=== PATIENT | female | born 1935 | race Caucasian/White ===

== ENCOUNTER 2016-08-20 10:29 | Inpatient (IN) | payer MEDICARE, BC ==
[~2016-08-20 10:29] MED LIST: ALBUTEROL0.63 MG/1 INH; ALBUTEROL0.83 MG/ML INH; ALDACTONE25 M1 PO; ALDACTONE25 MG PO; AMIODARONE HCL400 MG PO; ASPIR 8181 MG PO; BELVIQ10 M1 PO; BENADRYL25 MG PO; BL MAXEPA CAPSU1 CAP PO; BYSTOLIC10 M1 PO; CALCIUM CARBON600 MG PO; CALCIUM CITRAT1 EAC6 PO; CEPHALEXIN; CHOLESTRAMINE; CLONAZEPAM1 M1 PO; CLONAZEPAM1 M2 PO; COLACE1 EAC1 RC; CRESTOR10 MG PO; CRESTOR20 MG PO; DEMADEX20 M1 PO; DILAUDID2 MG PO; EXELON1 PATCH .1 TD; FEROSUL325 MG PO; FERROUS GLUCON324 M1 PO; FLEXERIL5 MG PO; FLOVENT HFA12 GM IH; FOLIC ACID1 MG PO; FOSAMAX70 MG PO; GAS X PO; GAS-X80 MG PO; HYDROMORPHONE HC2 MG PO; KLOR-CON 1010 MEQ PO; LASIX20 MG PO; LATANOPROST2.5 M1 OP; LATANOPROST2.5 ML OP; LEVAQUIN750 M1 PO; LEVOTHYROXINE50 MCG PO; LEXAPRO20 M1 PO; LEXAPRO20 MG PO; MACROBID100 MG/CA2 PO; MACRODANTIN100 MG PO; MAGNESIUM400 MG PO; MEPROBAMATE400 MG PO; METHOTREXA25 MG/1 M3 IJ; MIRALAX17 G2 PO; MUCINEX600 M1 PO; NAMENDA XR14 M1 PO; NAMENDA10 MG PO; NITROGLYCERIN0.4 MG SL; NORCO 5/325 TAB1 TAB PO; NORVASC5 M2 PO; NORVASC5 MG PO; PANTOPRAZOLE SO40 MG PO; PERCOCET 5/3251 TAB PO; PRADAXA150 MG PO; PRADAXA75 M1 PO; PREDNISONE10 MG PO; PREDNISONE20 M1 PO; PREDNISONE20 MG PO; PROAIR HFA8.5 GM INH; REMICADE100 MG IV; REMICADE100 MG/VIA IV; ROBITUSSIN COU118 M8 PO; SYNTHROID100 MC1 PO; TAMIFLU75 MG/CAP PO; TIMOPTIC10 ML EACH EYE; TOPROL XL50 MG PO; TYLENOL ARTHRI650 MG PO; ULTRAM50 MG PO; VITAMIN D1000 UNIT PO; VITAMIN D32000 UNI3 PO; VITAMIN D32000 UNIT PO; VITAMIN E PO; XALATAN2.5 ML OP; XANAX0.5 MG PO; ZANAFLEX4 M2 PO; ZITHROMAX500 M2 PO; ZOLPIDEM TARTRA10 M1 PO; [UNRECOGNIZED DRUG - OTHER] PO; [UNRECOGNIZED DRUG - SUPPLY]
[2016-08-20] MEDS ORDERED: XANAX0.5 M1 PO (10:45)
[2016-08-20] MEDS ORDERED: ALBUTEROL2.5 MG/3 M INH ×2 (10:45)
[2016-08-20] MEDS ORDERED: BYSTOLIC5 M1 PO (10:46)
[2016-08-20] MEDS ORDERED: ASPIRIN EC81 MG PO (10:46)
[2016-08-20] MEDS ORDERED: ALPRAZOLAM0.5 M3 PO (10:46)
[2016-08-20] MEDS ORDERED: EXELON1 EAC1 TD (10:47)
[2016-08-20] MEDS ORDERED: KLONOPIN1 M1 PO (10:47)
[2016-08-20] MEDS ORDERED: LEXAPRO20 M2 PO (10:47)
[2016-08-20] MEDS ORDERED: CALCIUM CITRAT1 EA18 PO (10:47)
[2016-08-20] MEDS ORDERED: FERROUS GLUCON324 M1 PO (10:48)
[2016-08-20] MEDS ORDERED: FLOVENT HFA1 PUFF INH (10:48)
[2016-08-20] MEDS ORDERED: FOLIC ACID1 M1 PO (10:48)
[2016-08-20] MEDS ORDERED: XALATAN2.5 M1 OP (10:49)
[2016-08-20] MEDS ORDERED: MAGNESIUM OXID400 M1 PO (10:49)
[2016-08-20] MEDS ORDERED: SYNTHROID100 MC1 PO (10:49)
[2016-08-20] MEDS ORDERED: NAMENDA XR21 M1 PO (10:49)
[2016-08-20] MEDS ORDERED: MUCINEX600 M1 PO (10:49)
[2016-08-20] MEDS ORDERED: PROTONIX40 M2 PO (10:50)
[2016-08-20] MEDS ORDERED: DELTASONE20 MG PO ×2 (10:50→10:53)
[2016-08-20] MEDS ORDERED: MACROBID 100 M100 M1 PO (10:50)
[2016-08-20] MEDS ORDERED: PRADAXA75 M1 PO (10:50)
[2016-08-20] MEDS ORDERED: PREDNISONE20 M1 PO (10:51)
[2016-08-20] MEDS ORDERED: ROSUVASTATIN CA20 MG PO (10:53)
[2016-08-20] MEDS ORDERED: TYLENOL EXTRA500 M1 PO (10:54)
[2016-08-20] MEDS ORDERED: DEMADEX10 M1 PO (10:54)
[2016-08-20] MEDS ORDERED: TIMOPTIC10 ML OP (10:54)
[2016-08-20] MEDS ORDERED: VITAMIN D32000 UNI3 PO (10:54)
[2016-08-20] MEDS ORDERED: ANTI-DIARRHEAL2 M3 PO (10:56)
[2016-08-20] MEDS ORDERED: HYDROCODON-ACE1 EA17 PO (10:56)
[2016-08-20] MEDS ORDERED: [UNRECOGNIZED DRUG - OTHER] PO (10:57)
[2016-08-20] MEDS ORDERED: ZOFRAN4 M2 PO (10:57)
[2016-08-20] MEDS ORDERED: NITROSTAT0.4 MG/TAB SL (10:57)
[2016-08-20] MEDS ORDERED: ROBAFEN100 MG/52 PO (10:58)
[2016-08-20] MEDS ORDERED: PROAIR HFA8.5 GM INH (10:58)
[2016-08-20 11:06] LABS: BASO % 0.1 % (0-2); EOS % 0.1 % (0-7); HCT-HEMATOCRIT 39.4 % (34.0-49.0); HGB-HEMOGLOBIN 12.8 gm/dl (12.0-15.5); IMMATURE GRANULOCYTES ABSOLUTE 0.07 tho/cmm (0-0.03); IMMATURE GRANULOCYTES PERCENT 0.4 % (0-0.3); LYMPH % 6.7 % (20-45); LYMPH ABSOLUTE COUNT 1.2 tho/cmm (0.8-4.5); MCH (MEAN CORPUSCULAR HGB) 29.4 pg (28.0-32.0); MCHC MEAN CORPUSCULAR HGB CONC 32.5 % (32.0-36.0); MCV (MEAN CELL VOLUME) 90.4 fl (82.0-96.0); MEAN PLATELET VOLUME 11.5 cmc (9.4-12.4); MONO % 12.2 % (0-12); MONOCYTE ABSOLUTE COUNT 2.2 tho/cmm (0.0-1.2); NEUTROPHIL ABSOLUTE COUNT 14.7 tho/cmm (1.6-8.0); NEUTROPHIL-AUTOMATED 14.7 tho/cmm (1.6-8.0); NEUTROPHILS % 80.5 % (40-80); PLATELET COUNT 265 tho/cmm (150-450); RED BLOOD COUNT 4.36 mil/cmm (4.00-5.20); RED CELL DISTRIBUTION WIDTH 14.7 % (12.4-16.4); WHITE BLOOD COUNT 18.3 tho/cmm (4.0-10.0)
[2016-08-20 11:37] LABS: ALB/GLOB RATIO 0.7 (0.8-2.0); ALBUMIN 3.5 g/dl (3.5-5.0); ALKALINE PHOSPHATASE 121 U/L (33-138); ALT/SGPT 20 U/L (12-78); ANION GAP 18 mmol/L (0-20); AST/SGOT 21 U/L (10-40); BILIRUBIN,TOTAL 0.9 mg/dl (0-1.5); BLOOD UREA NITROGEN 60 mg/dl (6-24); CALCIUM 9.7 mg/dl (8.5-10.5); CARBON DIOXIDE-VENOUS 28 mmol/L (22-32); CHLORIDE 95 mmol/l (96-110); CREATININE 2.45 mg/dl (0.50-1.10); GLUCOSE 174 mg/dL (70-110); POTASSIUM 3.3 mmol/L (3.7-5.1); SODIUM 138 mmol/L (135-145); eGFR VALUE FOR BLACK 21 mL/Min
[2016-08-20 12:32] LABS: URINE BILIRUBIN NEGATIVE (NEG); URINE BLOOD NEGATIVE (NEG); URINE GLUCOSE (UA) NEGATIVE (NEG); URINE KETONE SMALL (NEG); URINE LEUKOCYTE ESTERASE NEGATIVE (NEG); URINE NITRITE NEGATIVE (NEG); URINE PROTEIN MODERATE (NEG)
[2016-08-20 12:36] LABS: URINE APPEARANCE CLEAR; URINE COLOR YELLOW
[2016-08-20 12:44] LABS: URINE MUCUS 1+
[2016-08-20 12:45] LABS: URINE EPITHELIAL CELLS 0-1 /[HPF] (0-10); URINE RBC 0 /[HPF] (0-5); URINE WBC 0-2 /[HPF] (0-5)
[2016-08-21 06:51] LABS: EOS % 0.9 % (0-7); EOSINOPHIL ABSOLUTE COUNT 0.1 tho/cmm (0.0-0.7); HCT-HEMATOCRIT 33.1 % (34.0-49.0); HGB-HEMOGLOBIN 10.3 gm/dl (12.0-15.5); IMMATURE GRANULOCYTES ABSOLUTE 0.03 tho/cmm (0-0.03); IMMATURE GRANULOCYTES PERCENT 0.3 % (0-0.3); LYMPH ABSOLUTE COUNT 1.3 tho/cmm (0.8-4.5); MCH (MEAN CORPUSCULAR HGB) 28.9 pg (28.0-32.0); MCHC MEAN CORPUSCULAR HGB CONC 31.1 % (32.0-36.0); MCV (MEAN CELL VOLUME) 92.7 fl (82.0-96.0); MEAN PLATELET VOLUME 11.2 cmc (9.4-12.4); MONO % 10.2 % (0-12); MONOCYTE ABSOLUTE COUNT 1.1 tho/cmm (0.0-1.2); NEUTROPHIL ABSOLUTE COUNT 8.1 tho/cmm (1.6-8.0); NEUTROPHIL-AUTOMATED 8.1 tho/cmm (1.6-8.0); NEUTROPHILS % 76.6 % (40-80); PLATELET COUNT 176 tho/cmm (150-450); RED BLOOD COUNT 3.57 mil/cmm (4.00-5.20); WHITE BLOOD COUNT 10.6 tho/cmm (4.0-10.0)
[2016-08-21 07:01] LABS: ANION GAP 9 mmol/L (0-20); BLOOD UREA NITROGEN 50 mg/dl (6-24); CALCIUM 8.7 mg/dl (8.5-10.5); CARBON DIOXIDE-VENOUS 31 mmol/L (22-32); CHLORIDE 106 mmol/l (96-110); GLUCOSE 117 mg/dL (70-110); POTASSIUM 3.8 mmol/L (3.7-5.1); SODIUM 142 mmol/L (135-145); eGFR VALUE FOR BLACK 34 mL/Min
[2016-08-21 07:20] LABS: CREATININE 1.62 mg/dl (0.50-1.10)
[2016-08-22 05:18] LABS: EOS % 1.2 % (0-7); EOSINOPHIL ABSOLUTE COUNT 0.1 tho/cmm (0.0-0.7); HCT-HEMATOCRIT 32.4 % (34.0-49.0); HGB-HEMOGLOBIN 9.9 gm/dl (12.0-15.5); IMMATURE GRANULOCYTES ABSOLUTE 0.01 tho/cmm (0-0.03); IMMATURE GRANULOCYTES PERCENT 0.1 % (0-0.3); LYMPH % 15.9 % (20-45); LYMPH ABSOLUTE COUNT 1.3 tho/cmm (0.8-4.5); MCH (MEAN CORPUSCULAR HGB) 28.5 pg (28.0-32.0); MCHC MEAN CORPUSCULAR HGB CONC 30.6 % (32.0-36.0); MCV (MEAN CELL VOLUME) 93.4 fl (82.0-96.0); MEAN PLATELET VOLUME 11.4 cmc (9.4-12.4); MONO % 8.5 % (0-12); MONOCYTE ABSOLUTE COUNT 0.7 tho/cmm (0.0-1.2); NEUTROPHIL ABSOLUTE COUNT 6.1 tho/cmm (1.6-8.0); NEUTROPHIL-AUTOMATED 6.1 tho/cmm (1.6-8.0); NEUTROPHILS % 74.3 % (40-80); PLATELET COUNT 191 tho/cmm (150-450); RED BLOOD COUNT 3.47 mil/cmm (4.00-5.20); WHITE BLOOD COUNT 8.3 tho/cmm (4.0-10.0)
[2016-08-22 05:23] LABS: ALBUMIN 2.5 g/dl (3.5-5.0); ALKALINE PHOSPHATASE 86 U/L (33-138); ALT/SGPT 20 U/L (12-78); BILIRUBIN,TOTAL 0.5 mg/dl (0-1.5); BLOOD UREA NITROGEN 31 mg/dl (6-24); CALCIUM 8.4 mg/dl (8.5-10.5); CARBON DIOXIDE-VENOUS 27 mmol/L (22-32); CHLORIDE 109 mmol/l (96-110); CREATININE 1.23 mg/dl (0.50-1.10); GLUCOSE 101 mg/dL (70-110); SODIUM 143 mmol/L (135-145); eGFR VALUE FOR BLACK 48 mL/Min
[2016-08-22 05:39] LABS: ALB/GLOB RATIO 0.6 (0.8-2.0); ANION GAP 11 mmol/L (0-20); AST/SGOT 27 U/L (10-40); POTASSIUM 4.2 mmol/L (3.7-5.1)
[2016-08-23 14:06] LABS: EOS % 0.5 % (0-7); HCT-HEMATOCRIT 31.9 % (34.0-49.0); HGB-HEMOGLOBIN 9.9 gm/dl (12.0-15.5); IMMATURE GRANULOCYTES ABSOLUTE 0.03 tho/cmm (0-0.03); IMMATURE GRANULOCYTES PERCENT 0.4 % (0-0.3); LYMPH % 9.3 % (20-45); LYMPH ABSOLUTE COUNT 0.8 tho/cmm (0.8-4.5); MCV (MEAN CELL VOLUME) 93.5 fl (82.0-96.0); MEAN PLATELET VOLUME 10.6 cmc (9.4-12.4); MONO % 4.9 % (0-12); MONOCYTE ABSOLUTE COUNT 0.4 tho/cmm (0.0-1.2); NEUTROPHILS % 84.9 % (40-80); PLATELET COUNT 196 tho/cmm (150-450); RED BLOOD COUNT 3.41 mil/cmm (4.00-5.20); RED CELL DISTRIBUTION WIDTH 14.9 % (12.4-16.4); WHITE BLOOD COUNT 8.3 tho/cmm (4.0-10.0)
[2016-08-23 14:16] LABS: ANION GAP 11 mmol/L (0-20); BLOOD UREA NITROGEN 23 mg/dl (6-24); CALCIUM 8.6 mg/dl (8.5-10.5); CARBON DIOXIDE-VENOUS 24 mmol/L (22-32); CHLORIDE 112 mmol/l (96-110); CREATININE 1.14 mg/dl (0.50-1.10); GLUCOSE 138 mg/dL (70-110); POTASSIUM 4.4 mmol/L (3.7-5.1); SODIUM 143 mmol/L (135-145); eGFR VALUE FOR BLACK 52 mL/Min
[2016-08-24 04:42] LABS: EOS % 0.7 % (0-7); HCT-HEMATOCRIT 32.1 % (34.0-49.0); HGB-HEMOGLOBIN 9.9 gm/dl (12.0-15.5); IMMATURE GRANULOCYTES ABSOLUTE 0.02 tho/cmm (0-0.03); IMMATURE GRANULOCYTES PERCENT 0.3 % (0-0.3); LYMPH % 19.6 % (20-45); LYMPH ABSOLUTE COUNT 1.2 tho/cmm (0.8-4.5); MCH (MEAN CORPUSCULAR HGB) 28.9 pg (28.0-32.0); MCHC MEAN CORPUSCULAR HGB CONC 30.8 % (32.0-36.0); MCV (MEAN CELL VOLUME) 93.9 fl (82.0-96.0); MEAN PLATELET VOLUME 10.8 cmc (9.4-12.4); MONO % 8.7 % (0-12); MONOCYTE ABSOLUTE COUNT 0.5 tho/cmm (0.0-1.2); NEUTROPHIL ABSOLUTE COUNT 4.3 tho/cmm (1.6-8.0); NEUTROPHIL-AUTOMATED 4.3 tho/cmm (1.6-8.0); NEUTROPHILS % 70.7 % (40-80); PLATELET COUNT 177 tho/cmm (150-450); RED BLOOD COUNT 3.42 mil/cmm (4.00-5.20); WHITE BLOOD COUNT 6.1 tho/cmm (4.0-10.0)
[2016-08-24 04:51] LABS: ANION GAP 9 mmol/L (0-20); BLOOD UREA NITROGEN 22 mg/dl (6-24); CALCIUM 8.9 mg/dl (8.5-10.5); CARBON DIOXIDE-VENOUS 24 mmol/L (22-32); CHLORIDE 114 mmol/l (96-110); CREATININE 1.05 mg/dl (0.50-1.10); GLUCOSE 100 mg/dL (70-110); POTASSIUM 4.6 mmol/L (3.7-5.1); SODIUM 142 mmol/L (135-145); eGFR VALUE FOR BLACK 58 mL/Min
[2016-08-26 08:15] LABS: EOS % 0.9 % (0-7); EOSINOPHIL ABSOLUTE COUNT 0.1 tho/cmm (0.0-0.7); HCT-HEMATOCRIT 34.7 % (34.0-49.0); HGB-HEMOGLOBIN 11.4 gm/dl (12.0-15.5); IMMATURE GRANULOCYTES ABSOLUTE 0.03 tho/cmm (0-0.03); IMMATURE GRANULOCYTES PERCENT 0.2 % (0-0.3); LYMPH ABSOLUTE COUNT 2.4 tho/cmm (0.8-4.5); MCH (MEAN CORPUSCULAR HGB) 29.4 pg (28.0-32.0); MCV (MEAN CELL VOLUME) 89.4 fl (82.0-96.0); MEAN PLATELET VOLUME 10.5 cmc (9.4-12.4); MONOCYTE ABSOLUTE COUNT 0.7 tho/cmm (0.0-1.2); NEUTROPHIL ABSOLUTE COUNT 8.8 tho/cmm (1.6-8.0); NEUTROPHIL-AUTOMATED 8.8 tho/cmm (1.6-8.0); NEUTROPHILS % 72.9 % (40-80); PLATELET COUNT 217 tho/cmm (150-450); RED BLOOD COUNT 3.88 mil/cmm (4.00-5.20); RED CELL DISTRIBUTION WIDTH 14.7 % (12.4-16.4)
[2016-08-26 08:16] LABS: MCHC MEAN CORPUSCULAR HGB CONC 32.9 % (32.0-36.0); WHITE BLOOD COUNT 12.1 tho/cmm (4.0-10.0)
[2016-08-26 08:27] LABS: ANION GAP 13 mmol/L (0-20); BLOOD UREA NITROGEN 17 mg/dl (6-24); CALCIUM 9.4 mg/dl (8.5-10.5); CARBON DIOXIDE-VENOUS 26 mmol/L (22-32); CHLORIDE 105 mmol/l (96-110); CREATININE 1.15 mg/dl (0.50-1.10); GLUCOSE 115 mg/dL (70-110); POTASSIUM 4.2 mmol/L (3.7-5.1); SODIUM 140 mmol/L (135-145); eGFR VALUE FOR BLACK 52 mL/Min
[2016-08-28 07:49] LABS: ANION GAP 13 mmol/L (0-20); BLOOD UREA NITROGEN 14 mg/dl (6-24); CALCIUM 9.1 mg/dl (8.5-10.5); CARBON DIOXIDE-VENOUS 28 mmol/L (22-32); CHLORIDE 105 mmol/l (96-110); CREATININE 1.14 mg/dl (0.50-1.10); GLUCOSE 118 mg/dL (70-110); MAGNESIUM 1.9 mg/dl (1.3-2.6); PHOSPHOROUS 2.7 mg/dl (2.5-4.9); SODIUM 142 mmol/L (135-145); eGFR VALUE FOR BLACK 52 mL/Min
--- NOTE | 2016-08-29 18:39 | NUR ---
AGREE WITH LYNSEY BELLE ASSESSMENTS. PATIENT CONTINUES TO HAVE CONSTANT NAUSEA FROM BEING DIZZY. EGD NEGATIVE AND CT OF HEAD NEGATIVE. TREATING NAUSEA WITH MECLIZIEN AND ZOFRAN. AMIO AND CARDIZEM GTT DCD AND HRS HAVE BEEN STABLE IN THE 60S. DENIES CHEST PAIN.
[2016-08-31 04:32] LABS: BASO % 0.1 % (0-2); EOS % 4.2 % (0-7); EOSINOPHIL ABSOLUTE COUNT 0.3 tho/cmm (0.0-0.7); HCT-HEMATOCRIT 32.4 % (34.0-49.0); HGB-HEMOGLOBIN 10.3 gm/dl (12.0-15.5); IMMATURE GRANULOCYTES ABSOLUTE 0.01 tho/cmm (0-0.03); IMMATURE GRANULOCYTES PERCENT 0.1 % (0-0.3); LYMPH % 15.8 % (20-45); LYMPH ABSOLUTE COUNT 1.1 tho/cmm (0.8-4.5); MCH (MEAN CORPUSCULAR HGB) 29.3 pg (28.0-32.0); MCHC MEAN CORPUSCULAR HGB CONC 31.8 % (32.0-36.0); MEAN PLATELET VOLUME 9.9 cmc (9.4-12.4); MONO % 5.8 % (0-12); MONOCYTE ABSOLUTE COUNT 0.4 tho/cmm (0.0-1.2); NEUTROPHIL ABSOLUTE COUNT 5.3 tho/cmm (1.6-8.0); NEUTROPHIL-AUTOMATED 5.3 tho/cmm (1.6-8.0); PLATELET COUNT 156 tho/cmm (150-450); RED BLOOD COUNT 3.52 mil/cmm (4.00-5.20); RED CELL DISTRIBUTION WIDTH 15.5 % (12.4-16.4); WHITE BLOOD COUNT 7.1 tho/cmm (4.0-10.0)
[2016-08-31 04:43] LABS: ANION GAP 10 mmol/L (0-20); BLOOD UREA NITROGEN 18 mg/dl (6-24); CALCIUM 8.8 mg/dl (8.5-10.5); CARBON DIOXIDE-VENOUS 27 mmol/L (22-32); CHLORIDE 107 mmol/l (96-110); CREATININE 1.21 mg/dl (0.50-1.10); GLUCOSE 113 mg/dL (70-110); SODIUM 140 mmol/L (135-145); eGFR VALUE FOR BLACK 49 mL/Min
[2016-09-02 04:54] LABS: BASO % 0.2 % (0-2); EOS % 3.1 % (0-7); EOSINOPHIL ABSOLUTE COUNT 0.3 tho/cmm (0.0-0.7); HCT-HEMATOCRIT 30.2 % (34.0-49.0); HGB-HEMOGLOBIN 9.6 gm/dl (12.0-15.5); IMMATURE GRANULOCYTES ABSOLUTE 0.02 tho/cmm (0-0.03); IMMATURE GRANULOCYTES PERCENT 0.2 % (0-0.3); LYMPH % 13.4 % (20-45); LYMPH ABSOLUTE COUNT 1.2 tho/cmm (0.8-4.5); MCH (MEAN CORPUSCULAR HGB) 28.9 pg (28.0-32.0); MCHC MEAN CORPUSCULAR HGB CONC 31.8 % (32.0-36.0); MONO % 9.7 % (0-12); MONOCYTE ABSOLUTE COUNT 0.9 tho/cmm (0.0-1.2); NEUTROPHIL ABSOLUTE COUNT 6.4 tho/cmm (1.6-8.0); NEUTROPHIL-AUTOMATED 6.4 tho/cmm (1.6-8.0); NEUTROPHILS % 73.4 % (40-80); PLATELET COUNT 147 tho/cmm (150-450); RED BLOOD COUNT 3.32 mil/cmm (4.00-5.20); RED CELL DISTRIBUTION WIDTH 15.4 % (12.4-16.4); WHITE BLOOD COUNT 8.8 tho/cmm (4.0-10.0)
[2016-09-02 05:02] LABS: BLOOD UREA NITROGEN 21 mg/dl (6-24); CALCIUM 8.9 mg/dl (8.5-10.5); CARBON DIOXIDE-VENOUS 28 mmol/L (22-32); CHLORIDE 105 mmol/l (96-110); CREATININE 1.06 mg/dl (0.50-1.10); GLUCOSE 106 mg/dL (70-110); SODIUM 138 mmol/L (135-145); eGFR VALUE FOR BLACK 57 mL/Min
[2016-09-02 05:03] LABS: ANION GAP 9 mmol/L (0-20); MAGNESIUM 2.1 mg/dl (1.8-2.6); POTASSIUM 4.4 mmol/L (3.7-5.1)
[2016-09-04 05:27] LABS: BASO % 0.3 % (0-2); EOS % 5.6 % (0-7); EOSINOPHIL ABSOLUTE COUNT 0.4 tho/cmm (0.0-0.7); HGB-HEMOGLOBIN 9.2 gm/dl (12.0-15.5); IMMATURE GRANULOCYTES ABSOLUTE 0.02 tho/cmm (0-0.03); IMMATURE GRANULOCYTES PERCENT 0.3 % (0-0.3); LYMPH % 21.3 % (20-45); LYMPH ABSOLUTE COUNT 1.4 tho/cmm (0.8-4.5); MCH (MEAN CORPUSCULAR HGB) 29.1 pg (28.0-32.0); MCHC MEAN CORPUSCULAR HGB CONC 31.7 % (32.0-36.0); MCV (MEAN CELL VOLUME) 91.8 fl (82.0-96.0); MEAN PLATELET VOLUME 10.2 cmc (9.4-12.4); MONO % 7.4 % (0-12); MONOCYTE ABSOLUTE COUNT 0.5 tho/cmm (0.0-1.2); NEUTROPHIL ABSOLUTE COUNT 4.3 tho/cmm (1.6-8.0); NEUTROPHIL-AUTOMATED 4.3 tho/cmm (1.6-8.0); NEUTROPHILS % 65.1 % (40-80); PLATELET COUNT 155 tho/cmm (150-450); RED BLOOD COUNT 3.16 mil/cmm (4.00-5.20); RED CELL DISTRIBUTION WIDTH 15.7 % (12.4-16.4); WHITE BLOOD COUNT 6.6 tho/cmm (4.0-10.0)
[2016-09-04 05:44] LABS: CHLORIDE 105 mmol/l (96-110); POTASSIUM 4.6 mmol/L (3.7-5.1); SODIUM 140 mmol/L (135-145)
[2016-09-04 05:54] LABS: ANION GAP 14 mmol/L (0-20); BLOOD UREA NITROGEN 25 mg/dl (6-24); CALCIUM 8.6 mg/dl (8.5-10.5); CARBON DIOXIDE-VENOUS 26 mmol/L (22-32); CREATININE 1.18 mg/dl (0.50-1.10); GLUCOSE 104 mg/dL (70-110); eGFR VALUE FOR BLACK 50 mL/Min
[2016-09-07 05:05] LABS: BASO % 0.2 % (0-2); EOS % 5.3 % (0-7); EOSINOPHIL ABSOLUTE COUNT 0.3 tho/cmm (0.0-0.7); HCT-HEMATOCRIT 30.1 % (34.0-49.0); HGB-HEMOGLOBIN 9.3 gm/dl (12.0-15.5); IMMATURE GRANULOCYTES ABSOLUTE 0.01 tho/cmm (0-0.03); IMMATURE GRANULOCYTES PERCENT 0.2 % (0-0.3); LYMPH % 28.6 % (20-45); LYMPH ABSOLUTE COUNT 1.5 tho/cmm (0.8-4.5); MCH (MEAN CORPUSCULAR HGB) 29.1 pg (28.0-32.0); MCHC MEAN CORPUSCULAR HGB CONC 30.9 % (32.0-36.0); MCV (MEAN CELL VOLUME) 94.1 fl (82.0-96.0); MEAN PLATELET VOLUME 9.6 cmc (9.4-12.4); MONOCYTE ABSOLUTE COUNT 0.6 tho/cmm (0.0-1.2); NEUTROPHIL ABSOLUTE COUNT 2.9 tho/cmm (1.6-8.0); NEUTROPHIL-AUTOMATED 2.9 tho/cmm (1.6-8.0); NEUTROPHILS % 54.7 % (40-80); PLATELET COUNT 177 tho/cmm (150-450); RED CELL DISTRIBUTION WIDTH 16.1 % (12.4-16.4); WHITE BLOOD COUNT 5.3 tho/cmm (4.0-10.0)
[2016-09-07 05:09] LABS: ANION GAP 11 mmol/L (0-20); BLOOD UREA NITROGEN 23 mg/dl (6-24); CALCIUM 9.1 mg/dl (8.5-10.5); CARBON DIOXIDE-VENOUS 29 mmol/L (22-32); CHLORIDE 109 mmol/l (96-110); CREATININE 1.09 mg/dl (0.50-1.10); GLUCOSE 88 mg/dL (70-110); POTASSIUM 4.2 mmol/L (3.7-5.1); SODIUM 145 mmol/L (135-145); eGFR VALUE FOR BLACK 55 mL/Min
== END 2016-09-07 14:50 | DRG 309 ==
LOC: EDMED 10:29 → EMR2 13:19 → PCUA 16:28 → 5WE 09-01 06:50
PROVIDERS: Emergency Medicine; Internal Medicine; Internal Medicine Cardiovascular Disease; Nurse Practitioner; Nurse Practitioner Acute Care; ADMIT Internal Medicine
PROC: 3E0F7GC Introduction of Other Therapeutic Substance into Respiratory Tract, Via Natural or Artificial Opening (ICD-10-PCS; 2016-08-20)
PROC: B246ZZZ Ultrasonography of Right and Left Heart (ICD-10-PCS; 2016-08-21)
PROC: 5A2204Z Restoration of Cardiac Rhythm, Single (ICD-10-PCS; principal; 2016-08-23)
PROC: B246ZZ4 Ultrasonography of Right and Left Heart, Transesophageal (ICD-10-PCS; 2016-08-23)
PROC: B54NZZA Ultrasonography of Left Upper Extremity Veins, Guidance (ICD-10-PCS; 2016-08-24)
PROC: 05HC33Z Insertion of Infusion Device into Left Basilic Vein, Percutaneous Approach (ICD-10-PCS; 2016-08-24)
PROC: 0DB98ZX Excision of Duodenum, Via Natural or Artificial Opening Endoscopic, Diagnostic (ICD-10-PCS; 2016-08-29)
PROC: 0DB68ZX Excision of Stomach, Via Natural or Artificial Opening Endoscopic, Diagnostic (ICD-10-PCS; 2016-08-29)
DX: I48.0 Paroxysmal atrial fibrillation (principal); J96.11 Chronic respiratory failure with hypoxia; N17.9 Acute kidney failure, unspecified; E11.22 Type 2 diabetes mellitus with diabetic chronic kidney disease; E11.65 Type 2 diabetes mellitus with hyperglycemia; I49.5 Sick sinus syndrome; I13.10 Hypertensive heart and chronic kidney disease without heart failure, with stage 1 through stage 4 chronic kidney disease, or unspecified chronic kidney disease; Z99.81 Dependence on supplemental oxygen; I36.1 Nonrheumatic tricuspid (valve) insufficiency; D72.829 Elevated white blood cell count, unspecified; E78.5 Hyperlipidemia, unspecified; E86.0 Dehydration; E87.6 Hypokalemia; F41.9 Anxiety disorder, unspecified; N18.3 Chronic kidney disease, stage 3 (moderate); I25.10 Atherosclerotic heart disease of native coronary artery without angina pectoris; J44.9 Chronic obstructive pulmonary disease, unspecified; K22.4 Dyskinesia of esophagus; K52.9 Noninfective gastroenteritis and colitis, unspecified; M06.9 Rheumatoid arthritis, unspecified; R33.9 Retention of urine, unspecified; Z51.5 Encounter for palliative care; Z66 Do not resuscitate; Z95.0 Presence of cardiac pacemaker; Z95.1 Presence of aortocoronary bypass graft; G30.9 Alzheimer's disease, unspecified; F02.80 Dementia in other diseases classified elsewhere, unspecified severity, without behavioral disturbance, psychotic disturbance, mood disturbance, and anxiety; G47.33 Obstructive sleep apnea (adult) (pediatric); Z87.01 Personal history of pneumonia (recurrent)
CPT/HCPCS: C1751; G8996-GN-CI; G8997-GN-CI; G8998-GN-CI; J0282; J1160; J1815; J2405; J2550; J7030; J7512; P9612